=== PATIENT | female | born 1970 | race African-American/Black ===

== ENCOUNTER 2017-01-29 19:35 | Emergency (ER) | payer OTHER, MEDICAID ==
[~2017-01-29] VITALS: Ht 154.9 cm; Wt 72.7 kg
[~2017-01-29 19:35] MED LIST: ALBUTEROL SUL0.083 % IN; CIPRO XR500 MG PO; DEPAKOTE ER500 MG PO; MEDDOSEPAK PO; MONISTAT1 VA; NAPROSYN500 MG PO; PREDNISONE10 MG PO; ROBITUSSIN AC10 ML OR; ROBITUSSIN AC10 ML PO; TESSALON PER100 MG PO; ULTRAM50 M1 PO; XANAX0.25 MG PO; ZITHROMAX250 MG PO; ZPAK PO
[2017-01-29] MEDS ORDERED: MAXZIDE-2537.5 MG/TA PO (20:00)
[2017-01-29] MEDS ORDERED: ASPIRIN 81 LOW81 MG PO (20:00)
[2017-01-29 20:37] LABS: HEMATOCRIT 37.4 % (37.0-47.0); IMMATURE GRANULOCYTES 0.3 % (0.0-1.0); MEAN CELL VOLUME 80.8 fL CALC (80.0-100.0); MEAN CORPUSCULAR HGB 28.1 pG CALC (26.0-32.0); MEAN CORPUSCULAR HGB CONC 34.8 g/L CALC (32.0-36.0); NEUT# 4.11 thou/uL (2.00-7.15); RED BLOOD COUNT 4.63 mill/uL (4.20-5.60); RED CELL DISTRI WIDTH 14.2 % (11.5-15.5)
[2017-01-29 20:48] LABS: ALBUMIN 4.1 g/dL (3.2-5.0); ALKALINE PHOSPHATASE 93 u/l (38-126); ANION GAP 14 (6-22 (CALC)); BILIRUBIN, TOTAL 0.8 mg/dL (0.0-1.4); BUN 12 mg/dL (7-17); BUN/CREATININE RATIO 16 (12-20 (CALC)); CALCIUM 9.1 mg/dL (8.4-10.2); CARBON DIOXIDE 26 mmol/l (22-30); CHLORIDE 102 mmol/l (95-108); CREATININE 0.7 mg/dL (0.5-1.0); GFR > 60 ML/MIN (>=60 (CALC)); GFR FOR AFR.AMER. > 60 ML/MIN (>=60 (CALC)); GLUCOSE 98 mg/dL (65-105); POTASSIUM 4.6 mmol/l (3.5-5.1); SGOT/AST 36 u/l (14-36); SGPT/ALT 25 u/l (9-52); SODIUM 138 mmol/l (137-146); TOTAL PROTEIN 7.9 g/dL (6.3-8.2)
[2017-01-29 21:00] LABS: MYOGLOBIN 19 ng/mL (0 - 62)
[2017-01-29] MEDS ORDERED: NAPROSYN500 MG PO (22:30)
[2017-01-29 22:39] VITALS: BP 129/67
== END 2017-01-29 22:39 | disposition home or self-care (01) | DRG 313 ==
LOC: ED 19:35
PROVIDERS: Emergency Medicine
DX: R07.89 Other chest pain (principal); J44.9 Chronic obstructive pulmonary disease, unspecified; F41.9 Anxiety disorder, unspecified; J45.909 Unspecified asthma, uncomplicated; Z95.2 Presence of prosthetic heart valve; Z91.14 Patient's other noncompliance with medication regimen

== ENCOUNTER 2017-05-08 19:47 | Emergency (ER) | payer OTHER, MEDICAID ==
[~2017-05-08] VITALS: Ht 154.9 cm; Wt 79.0 kg
[~2017-05-08 19:47] MED LIST changes: +ASPIRIN 81 LOW81 MG PO; +MAXZIDE-2537.5 MG/TA PO
[2017-05-08 20:33] LABS: HEMATOCRIT 36.3 % (37.0-47.0); HEMOGLOBIN 12.2 g/dl (12.0-16.0); IMMATURE GRANULOCYTES 0.3 % (0.0-1.0); MEAN CELL VOLUME 81.9 fL CALC (80.0-100.0); MEAN CORPUSCULAR HGB 27.5 pG CALC (26.0-32.0); MEAN CORPUSCULAR HGB CONC 33.6 g/L CALC (32.0-36.0); NEUT# 4.76 thou/uL (2.00-7.15); RED BLOOD COUNT 4.43 mill/uL (4.20-5.60); RED CELL DISTRI WIDTH 13.8 % (11.5-15.5)
[2017-05-08 20:49] LABS: ALBUMIN 4.2 g/dL (3.2-5.0); ALKALINE PHOSPHATASE 85 u/l (38-126); AMYLASE 64 u/l (30-110); ANION GAP 12 (6-22 (CALC)); BILIRUBIN, TOTAL 0.7 mg/dL (0.0-1.4); BUN 11 mg/dL (7-17); BUN/CREATININE RATIO 11 (12-20 (CALC)); CALCIUM 8.9 mg/dL (8.4-10.2); CARBON DIOXIDE 28 mmol/l (22-30); CHLORIDE 102 mmol/l (95-108); GFR 60 ML/MIN (>=60 (CALC)); GFR FOR AFR.AMER. > 60 ML/MIN (>=60 (CALC)); GLUCOSE 104 mg/dL (65-105); LIPASE 88 u/l (23-300); POTASSIUM 3.7 mmol/l (3.5-5.1); SGOT/AST 24 u/l (14-36); SGPT/ALT 39 u/l (9-52); SODIUM 138 mmol/l (137-146); TOTAL PROTEIN 7.3 g/dL (6.3-8.2)
[2017-05-08 20:56] LABS: ACT PARTIAL THROMBO TIME 36.7 SECONDS (20.0-32.5); INTERNATIONAL NORMALIZED RATIO 1.1 RATIO (0.7-1.3); PROTHROMBIN TIME 12.4 SECONDS (9.0-12.5)
[2017-05-08 21:01] LABS: MYOGLOBIN 25 ng/mL (0 - 62)
[2017-05-08 22:51] LABS: URINE BILIRUBIN - DIPSTICK NEGATIVE (NEGATIVE); URINE BLOOD DIPSTICK NEGATIVE (NEGATIVE); URINE CLARITY CLEAR; URINE COLOR YELLOW; URINE GLUCOSE - DIPSTICK NEGATIVE (NEGATIVE); URINE KETONE NEGATIVE (NEGATIVE); URINE LEUK ESTERASE NEGATIVE (NEGATIVE); URINE NITRITE - DIPSTICK NEGATIVE (Negative); URINE PROTEIN - DIPSTICK NEGATIVE (NEG-TRACE); URINE SPECIFIC GRAVITY <=1.005
[2017-05-09 00:11] VITALS: BP 155/77
== END 2017-05-09 00:11 | DRG 379 ==
LOC: ED 19:47
PROVIDERS: Emergency Medicine
DX: K92.2 Gastrointestinal hemorrhage, unspecified (principal); R06.02 Shortness of breath; R10.13 Epigastric pain; R10.32 Left lower quadrant pain; R11.2 Nausea with vomiting, unspecified; R19.7 Diarrhea, unspecified; Z98.890 Other specified postprocedural states

== ENCOUNTER 2017-06-06 09:25 | Emergency (ER) | payer OTHER, MEDICAID ==
[~2017-06-06] VITALS: Ht 154.9 cm; Wt 78.0 kg
[2017-06-06 10:22] LABS: HEMATOCRIT 37.4 % (37.0-47.0); HEMOGLOBIN 12.7 g/dl (12.0-16.0); IMMATURE GRANULOCYTES 0.2 % (0.0-1.0); MEAN CELL VOLUME 81.3 fL CALC (80.0-100.0); MEAN CORPUSCULAR HGB 27.6 pG CALC (26.0-32.0); NEUT# 3.53 thou/uL (2.00-7.15); RED BLOOD COUNT 4.6 mill/uL (4.20-5.60); RED CELL DISTRI WIDTH 13.6 % (11.5-15.5)
[2017-06-06 10:54] LABS: ALBUMIN 4.4 g/dL (3.2-5.0); ALKALINE PHOSPHATASE 78 u/l (38-126); ANION GAP 14 (6-22 (CALC)); BILIRUBIN, TOTAL 0.5 mg/dL (0.0-1.4); BUN 16 mg/dL (7-17); BUN/CREATININE RATIO 19 (12-20 (CALC)); CALCIUM 9.2 mg/dL (8.4-10.2); CARBON DIOXIDE 24 mmol/l (22-30); CHLORIDE 105 mmol/l (95-108); CREATININE 0.9 mg/dL (0.5-1.0); GFR > 60 ML/MIN (>=60 (CALC)); GFR FOR AFR.AMER. > 60 ML/MIN (>=60 (CALC)); GLUCOSE 118 mg/dL (65-105); POTASSIUM 4.3 mmol/l (3.5-5.1); SGOT/AST 27 u/l (14-36); SGPT/ALT 29 u/l (9-52); SODIUM 140 mmol/l (137-146); TOTAL PROTEIN 7.8 g/dL (6.3-8.2)
[2017-06-06 11:06] LABS: MYOGLOBIN 21 ng/mL (0 - 62)
[2017-06-06 12:11] VITALS: BP 132/67
[2017-06-06] MEDS ORDERED: XANAX0.25 MG PO (12:12)
== END 2017-06-06 12:22 | disposition left against medical advice (07) | DRG 313 ==
LOC: ED 09:25
PROVIDERS: Emergency Medicine
DX: R07.9 Chest pain, unspecified (principal); J44.9 Chronic obstructive pulmonary disease, unspecified; F41.9 Anxiety disorder, unspecified; Z91.19 Patient's noncompliance with other medical treatment and regimen

== ENCOUNTER 2017-09-20 06:45 | Day surgery (SDC) | payer MEDICARE, OTHER, MEDICAID ==
[~2017-09-20] VITALS: Ht 154.9 cm; Wt 75.3 kg
[2017-09-20] MEDS ORDERED: LORTAB 7.57.5 MG PO (08:46)
[2017-09-20 09:43] VITALS: BP 133/67
== END 2017-09-20 09:42 | disposition home or self-care (01) ==
LOC: ORM 06:45
PROVIDERS: ATTEND Obstetrics & Gynecology
PROC: 0U5B8ZZ Destruction of Endometrium, Via Natural or Artificial Opening Endoscopic (ICD-10-PCS; principal; 2017-09-20)
PROC: 0UDB7ZX Extraction of Endometrium, Via Natural or Artificial Opening, Diagnostic (ICD-10-PCS; 2017-09-20)
DX: N92.1 Excessive and frequent menstruation with irregular cycle (principal); J44.9 Chronic obstructive pulmonary disease, unspecified; I10 Essential (primary) hypertension; E78.00 Pure hypercholesterolemia, unspecified; K21.9 Gastro-esophageal reflux disease without esophagitis; F17.210 Nicotine dependence, cigarettes, uncomplicated; E66.9 Obesity, unspecified; I25.10 Atherosclerotic heart disease of native coronary artery without angina pectoris; Z86.73 Personal history of transient ischemic attack (TIA), and cerebral infarction without residual deficits; Z95.3 Presence of xenogenic heart valve; Z68.33 Body mass index [BMI] 33.0-33.9, adult

== ENCOUNTER 2017-10-04 08:04 | Emergency (ER) | payer MEDICARE, MEDICAID, OTHER ==
[~2017-10-04] VITALS: Ht 154.9 cm; Wt 100.0 kg
[~2017-10-04 08:04] MED LIST changes: +LORTAB 7.57.5 MG PO
[2017-10-04] MEDS ORDERED: CARAFATE1 GM PO (08:27)
[2017-10-04] MEDS ORDERED: PANTOPRAZOLE SO40 MG PO (08:27)
[2017-10-04 08:28] LABS: HEMATOCRIT 37.4 % (37.0-47.0); HEMOGLOBIN 12.8 g/dl (12.0-16.0); IMMATURE GRANULOCYTES 0.2 % (0.0-1.0); MEAN CELL VOLUME 81.7 fL CALC (80.0-100.0); MEAN CORPUSCULAR HGB 27.9 pG CALC (26.0-32.0); MEAN CORPUSCULAR HGB CONC 34.2 g/L CALC (32.0-36.0); NEUT# 3.61 thou/uL (2.00-7.15); RED BLOOD COUNT 4.58 mill/uL (4.20-5.60); RED CELL DISTRI WIDTH 13.6 % (11.5-15.5)
[2017-10-04 08:58] LABS: ALBUMIN 4.2 g/dL (3.2-5.0); ALKALINE PHOSPHATASE 91 u/l (38-126); ANION GAP 14 (6-22 (CALC)); BILIRUBIN, TOTAL 0.5 mg/dL (0.0-1.4); BUN 13 mg/dL (7-17); BUN/CREATININE RATIO 17 (12-20 (CALC)); CALCIUM 9.3 mg/dL (8.4-10.2); CARBON DIOXIDE 19 mmol/l (22-30); CHLORIDE 110 mmol/l (95-108); CREATININE 0.8 mg/dL (0.5-1.0); GFR > 60 ML/MIN (>=60 (CALC)); GFR FOR AFR.AMER. > 60 ML/MIN (>=60 (CALC)); GLUCOSE 133 mg/dL (65-105); POTASSIUM 4.5 mmol/l (3.5-5.1); SGOT/AST 27 u/l (14-36); SGPT/ALT 34 u/l (9-52); SODIUM 138 mmol/l (137-146); TOTAL PROTEIN 7.2 g/dL (6.3-8.2)
[2017-10-04 09:16] LABS: BETA-HCG, QUANT(RESULT NUMBER) < 2 mIU/mL
[2017-10-04] MEDS ORDERED: PROVENTIL HFA IN (09:59)
[2017-10-04] MEDS ORDERED: MEDDOSEPAK PO (09:59)
[2017-10-04] MEDS ORDERED: TESSALON PER100 MG PO (10:04)
[2017-10-04] MEDS ORDERED: ALBUTEROL SUL0.083 % IN (10:04)
[2017-10-04 10:05] VITALS: BP 162/83
== END 2017-10-04 10:15 | disposition home or self-care (01) ==
LOC: ED 08:04
PROVIDERS: Emergency Medicine
DX: J44.1 Chronic obstructive pulmonary disease with (acute) exacerbation (principal); R06.02 Shortness of breath; R05 Cough; I10 Essential (primary) hypertension; Z86.73 Personal history of transient ischemic attack (TIA), and cerebral infarction without residual deficits

== ENCOUNTER 2017-10-25 23:26 | Emergency (ER) | payer MEDICARE, MEDICAID, OTHER ==
[~2017-10-25] VITALS: Ht 154.9 cm; Wt 79.5 kg
[~2017-10-25 23:26] MED LIST changes: +CARAFATE1 GM PO; +PANTOPRAZOLE SO40 MG PO; +PROVENTIL HFA IN
[2017-10-26 00:19] LABS: HEMATOCRIT 36.7 % (37.0-47.0); HEMOGLOBIN 12.4 g/dl (12.0-16.0); IMMATURE GRANULOCYTES 0.4 % (0.0-1.0); MEAN CELL VOLUME 82.8 fL CALC (80.0-100.0); MEAN CORPUSCULAR HGB CONC 33.8 g/L CALC (32.0-36.0); NEUT# 7.71 thou/uL (2.00-7.15); RED BLOOD COUNT 4.43 mill/uL (4.20-5.60); RED CELL DISTRI WIDTH 13.8 % (11.5-15.5)
[2017-10-26 00:33] LABS: ALBUMIN 4.2 g/dL (3.2-5.0); ALKALINE PHOSPHATASE 96 u/l (38-126); ANION GAP 16 (6-22 (CALC)); BILIRUBIN, TOTAL 0.9 mg/dL (0.0-1.4); BUN 10 mg/dL (7-17); BUN/CREATININE RATIO 13 (12-20 (CALC)); CALCIUM 9.9 mg/dL (8.4-10.2); CARBON DIOXIDE 24 mmol/l (22-30); CHLORIDE 107 mmol/l (95-108); CREATININE 0.8 mg/dL (0.5-1.0); GFR > 60 ML/MIN (>=60 (CALC)); GFR FOR AFR.AMER. > 60 ML/MIN (>=60 (CALC)); GLUCOSE 137 mg/dL (65-105); POTASSIUM 5.1 mmol/l (3.5-5.1); SGOT/AST 69 u/l (14-36); SGPT/ALT 44 u/l (9-52); SODIUM 142 mmol/l (137-146); TOTAL PROTEIN 7.1 g/dL (6.3-8.2)
[2017-10-26 00:45] LABS: MYOGLOBIN 22 ng/mL (0 - 62)
[2017-10-26] MEDS ORDERED: ZITHROMAX250 MG PO (01:16)
[2017-10-26 01:27] VITALS: BP 157/86
== END 2017-10-26 01:28 | disposition home or self-care (01) ==
LOC: ED 23:26
PROVIDERS: Emergency Medicine
DX: J44.1 Chronic obstructive pulmonary disease with (acute) exacerbation (principal); R06.02 Shortness of breath; J45.909 Unspecified asthma, uncomplicated; H66.91 Otitis media, unspecified, right ear; J02.9 Acute pharyngitis, unspecified; R09.81 Nasal congestion; Z91.19 Patient's noncompliance with other medical treatment and regimen

== ENCOUNTER 2017-10-28 12:35 | Emergency (ER) | payer MEDICARE, MEDICAID, OTHER | END 2017-10-28 12:48 | disposition left against medical advice (07) | LOC: ED 12:35 → LWOBS 12:48 | DX: Z91.19 Patient's noncompliance with other medical treatment and regimen (principal) ==

== ENCOUNTER 2017-10-28 15:23 | Emergency (ER) | payer MEDICARE, MEDICAID, OTHER ==
[~2017-10-28] VITALS: Ht 154.9 cm; Wt 79.0 kg
[2017-10-28 16:35] LABS: HEMATOCRIT 37.4 % (37.0-47.0); HEMOGLOBIN 12.7 g/dl (12.0-16.0); IMMATURE GRANULOCYTES 0.3 % (0.0-1.0); MEAN CELL VOLUME 84.4 fL CALC (80.0-100.0); MEAN CORPUSCULAR HGB 28.7 pG CALC (26.0-32.0); NEUT# 6.16 thou/uL (2.00-7.15); RED BLOOD COUNT 4.43 mill/uL (4.20-5.60); RED CELL DISTRI WIDTH 14.1 % (11.5-15.5)
[2017-10-28 17:01] LABS: ALBUMIN 4.3 g/dL (3.2-5.0); ALKALINE PHOSPHATASE 123 u/l (38-126); ANION GAP 17 (6-22 (CALC)); BILIRUBIN, TOTAL 0.6 mg/dL (0.0-1.4); BUN 15 mg/dL (7-17); BUN/CREATININE RATIO 17 (12-20 (CALC)); CALCIUM 9.9 mg/dL (8.4-10.2); CARBON DIOXIDE 22 mmol/l (22-30); CHLORIDE 108 mmol/l (95-108); CREATININE 0.9 mg/dL (0.5-1.0); GFR > 60 ML/MIN (>=60 (CALC)); GFR FOR AFR.AMER. > 60 ML/MIN (>=60 (CALC)); GLUCOSE 127 mg/dL (65-105); POTASSIUM 4.2 mmol/l (3.5-5.1); SGOT/AST 32 u/l (14-36); SGPT/ALT 38 u/l (9-52); SODIUM 143 mmol/l (137-146); TOTAL PROTEIN 7.5 g/dL (6.3-8.2)
[2017-10-28 21:40] VITALS: BP 170/76
== END 2017-10-28 21:40 | disposition short-term general hospital (02) ==
LOC: ED 15:23
PROVIDERS: Emergency Medicine
DX: J36 Peritonsillar abscess (principal); J44.9 Chronic obstructive pulmonary disease, unspecified; I50.9 Heart failure, unspecified

== ENCOUNTER 2017-12-14 10:11 | Emergency (ER) | payer MEDICARE, MEDICAID ==
[~2017-12-14] VITALS: Ht 154.9 cm; Wt 76.8 kg
[2017-12-14 11:16] LABS: HEMATOCRIT 38.6 % (37.0-47.0); HEMOGLOBIN 12.9 g/dl (12.0-16.0); IMMATURE GRANULOCYTES 0.3 % (0.0-1.0); MEAN CELL VOLUME 83.7 fL CALC (80.0-100.0); MEAN CORPUSCULAR HGB CONC 33.4 g/L CALC (32.0-36.0); NEUT# 3.94 thou/uL (2.00-7.15); RED BLOOD COUNT 4.61 mill/uL (4.20-5.60); RED CELL DISTRI WIDTH 13.8 % (11.5-15.5)
[2017-12-14 11:32] LABS: ALBUMIN 4.4 g/dL (3.2-5.0); ALKALINE PHOSPHATASE 80 u/l (38-126); ANION GAP 15 (6-22 (CALC)); BILIRUBIN, TOTAL 0.5 mg/dL (0.0-1.4); BUN 9 mg/dL (7-17); BUN/CREATININE RATIO 11 (12-20 (CALC)); CARBON DIOXIDE 26 mmol/l (22-30); CHLORIDE 106 mmol/l (95-108); CREATININE 0.8 mg/dL (0.5-1.0); GFR > 60 ML/MIN (>=60 (CALC)); GFR FOR AFR.AMER. > 60 ML/MIN (>=60 (CALC)); POTASSIUM 4.7 mmol/l (3.5-5.1); SGOT/AST 23 u/l (14-36); SGPT/ALT 24 u/l (9-52); SODIUM 142 mmol/l (137-146); TOTAL PROTEIN 7.3 g/dL (6.3-8.2)
[2017-12-14 11:37] LABS: INFLUENZA A NONE DETECTED (NONE DETECT); INFLUENZA B NONE DETECTED (NONE DETECT)
[2017-12-14] MEDS ORDERED: MEDDOSEPAK PO (12:03)
[2017-12-14] MEDS ORDERED: ZITHROMAX250 MG PO (12:03)
[2017-12-14 12:10] VITALS: BP 133/81
== END 2017-12-14 12:10 | disposition home or self-care (01) ==
LOC: ED 10:11
PROVIDERS: Emergency Medicine
DX: J44.9 Chronic obstructive pulmonary disease, unspecified (principal); I50.9 Heart failure, unspecified

== ENCOUNTER 2018-10-02 09:30 | Emergency (ER) | payer MEDICARE, MEDICAID ==
[~2018-10-02] VITALS: Ht 154.9 cm; Wt 73.0 kg
[2018-10-02 09:59] LABS: HEMATOCRIT 41.5 % (37.0-47.0); HEMOGLOBIN 14.1 g/dl (12.0-16.0); IMMATURE GRANULOCYTES 0.4 % (0.0-5.0); MEAN CELL VOLUME 80.9 fL CALC (80.0-100.0); MEAN CORPUSCULAR HGB 27.5 pG CALC (26.0-32.0); NEUT# 4.05 thou/uL (2.00-7.15); RED BLOOD COUNT 5.13 mill/uL (4.20-5.60); RED CELL DISTRI WIDTH 13.7 % (11.5-15.5)
[2018-10-02 10:18] LABS: ALBUMIN 4.2 g/dL (3.2-5.0); ALKALINE PHOSPHATASE 94 u/l (38-126); ANION GAP 13 (6-22 (CALC)); BILIRUBIN, TOTAL 0.8 mg/dL (0.0-1.4); BUN 13 mg/dL (7-17); BUN/CREATININE RATIO 17 (12-20 (CALC)); CARBON DIOXIDE 26 mmol/l (22-30); CHLORIDE 105 mmol/l (95-108); CREATININE 0.8 mg/dL (0.5-1.0); GFR > 60 ML/MIN (>=60 (CALC)); GFR FOR AFR.AMER. > 60 ML/MIN (>=60 (CALC)); POTASSIUM 3.9 mmol/l (3.5-5.1); SGOT/AST 28 u/l (14-36); SODIUM 140 mmol/l (137-146); TOTAL PROTEIN 7.7 g/dL (6.3-8.2)
[2018-10-02] MEDS ORDERED: ZITHROMAX250 MG PO (11:31)
[2018-10-02] MEDS ORDERED: MEDDOSEPAK PO (11:31)
[2018-10-02 11:33] VITALS: BP 177/99
== END 2018-10-02 11:34 | disposition home or self-care (01) ==
LOC: ED 09:30
PROVIDERS: Emergency Medicine
DX: J45.901 Unspecified asthma with (acute) exacerbation (principal); I50.9 Heart failure, unspecified; J44.9 Chronic obstructive pulmonary disease, unspecified; R06.02 Shortness of breath
CPT/HCPCS: J3475

== ENCOUNTER 2018-11-03 15:52 | Emergency (ER) | payer MEDICARE, MEDICAID ==
[~2018-11-03] VITALS: Ht 154.9 cm; Wt 72.5 kg
[2018-11-03] MEDS ORDERED: COMBIVENT RESPIMAT IN (16:04)
[2018-11-03] MEDS ORDERED: IPRATROPIU0.5 MG/3 M IN (16:07)
[2018-11-03 17:38] LABS: HEMOGLOBIN 14.5 g/dl (12.0-16.0); IMMATURE GRANULOCYTES 0.2 % (0.0-5.0); MEAN CELL VOLUME 82.2 fL CALC (80.0-100.0); MEAN CORPUSCULAR HGB 27.7 pG CALC (26.0-32.0); MEAN CORPUSCULAR HGB CONC 33.7 g/L CALC (32.0-36.0); NEUT# 3.68 thou/uL (2.00-7.15); RED BLOOD COUNT 5.23 mill/uL (4.20-5.60); RED CELL DISTRI WIDTH 13.8 % (11.5-15.5)
[2018-11-03 17:53] LABS: ALBUMIN 4.6 g/dL (3.2-5.0); ALKALINE PHOSPHATASE 106 u/l (38-126); ANION GAP 16 (6-22 (CALC)); BILIRUBIN, TOTAL 0.7 mg/dL (0.0-1.4); BUN 13 mg/dL (7-17); BUN/CREATININE RATIO 15 (12-20 (CALC)); CARBON DIOXIDE 28 mmol/l (22-30); CHLORIDE 103 mmol/l (95-108); CREATININE 0.8 mg/dL (0.5-1.0); GFR > 60 ML/MIN (>=60 (CALC)); GFR FOR AFR.AMER. > 60 ML/MIN (>=60 (CALC)); SGOT/AST 23 u/l (14-36); SODIUM 142 mmol/l (137-146); TOTAL PROTEIN 7.9 g/dL (6.3-8.2)
[2018-11-03] MEDS ORDERED: LASIX 40 MG TAB40 MG PO (18:25)
[2018-11-03] MEDS ORDERED: ZITHROMAX250 MG PO (18:25)
[2018-11-03] MEDS ORDERED: MEDDOSEPAK PO (18:25)
[2018-11-03 18:41] VITALS: BP 179/86
== END 2018-11-03 18:41 | disposition home or self-care (01) ==
LOC: ED 15:52
PROVIDERS: Emergency Medicine
DX: J44.1 Chronic obstructive pulmonary disease with (acute) exacerbation (principal); I50.9 Heart failure, unspecified; Z95.2 Presence of prosthetic heart valve

== ENCOUNTER 2018-12-09 18:03 | Emergency (ER) | payer MEDICARE, MEDICAID ==
[~2018-12-09] VITALS: Ht 154.9 cm; Wt 70.5 kg
[~2018-12-09 18:03] MED LIST changes: +COMBIVENT RESPIMAT IN; +IPRATROPIU0.5 MG/3 M IN; +LASIX 40 MG TAB40 MG PO
[2018-12-09 18:40] LABS: HEMATOCRIT 45.5 % (37.0-47.0); HEMOGLOBIN 15.2 g/dl (12.0-16.0); IMMATURE GRANULOCYTES 0.3 % (0.0-5.0); MEAN CELL VOLUME 81.8 fL CALC (80.0-100.0); MEAN CORPUSCULAR HGB 27.3 pG CALC (26.0-32.0); MEAN CORPUSCULAR HGB CONC 33.4 g/L CALC (32.0-36.0); NEUT# 3.26 thou/uL (2.00-7.15); RED BLOOD COUNT 5.56 mill/uL (4.20-5.60); RED CELL DISTRI WIDTH 13.9 % (11.5-15.5)
[2018-12-09] MEDS ORDERED: NEBULIZE2 IN (19:54)
[2018-12-09] MEDS ORDERED: DOXYCYCL HYC100 MG PO (19:54)
[2018-12-09] MEDS ORDERED: PREDNISONE50 MG PO (19:54)
[2018-12-09 20:19] VITALS: BP 152/76
== END 2018-12-09 20:19 | disposition home or self-care (01) ==
LOC: ED 18:03
PROVIDERS: Family Medicine
DX: J44.1 Chronic obstructive pulmonary disease with (acute) exacerbation (principal); I50.9 Heart failure, unspecified; Z95.2 Presence of prosthetic heart valve

== ENCOUNTER 2019-01-02 10:03 | Emergency (ER) | payer OTHER, MEDICARE, MEDICAID ==
[~2019-01-02] VITALS: Ht 154.9 cm; Wt 78.0 kg
[~2019-01-02 10:03] MED LIST changes: +DOXYCYCL HYC100 MG PO; +NEBULIZE2 IN; +PREDNISONE50 MG PO
[2019-01-02 11:03] VITALS: BP 123/76
== END 2019-01-02 11:03 | disposition home or self-care (01) | DRG 103 ==
LOC: ED 10:03
DX: R51 Headache (principal); M79.671 Pain in right foot; J44.9 Chronic obstructive pulmonary disease, unspecified; I50.9 Heart failure, unspecified; Z95.2 Presence of prosthetic heart valve; V49.40XA Driver injured in collision with unspecified motor vehicles in traffic accident, initial encounter

== ENCOUNTER 2019-05-29 10:16 | Observation (INO) | payer MEDICARE, MEDICAID ==
[~2019-05-29] VITALS: Ht 154.9 cm; Wt 72.7 kg
--- NOTE | 2019-05-29 10:18 | NUR ---
PATIENT TO ROOM FOR EXAM, BEDSIDE TRIAGE COMPLETED.
[2019-05-29 11:14] LABS: HEMATOCRIT 40.6 % (37.0-47.0); HEMOGLOBIN 13.4 g/dl (12.0-16.0); IMMATURE GRANULOCYTES 0.4 % (0.0-5.0); MEAN CELL VOLUME 81.5 fL CALC (80.0-100.0); MEAN CORPUSCULAR HGB 26.9 pG CALC (26.0-32.0); NEUT# 5.19 thou/uL (2.00-7.15); RED BLOOD COUNT 4.98 mill/uL (4.20-5.60); RED CELL DISTRI WIDTH 13.8 % (11.5-15.5)
[2019-05-29 11:41] LABS: ANION GAP 12 (6-22 (CALC)); BUN 10 mg/dL (7-17); BUN/CREATININE RATIO 14 (12-20 (CALC)); CARBON DIOXIDE 25 mmol/l (22-30); CHLORIDE 107 mmol/l (95-108); CREATININE 0.7 mg/dL (0.5-1.0); GFR > 60 ML/MIN (>=60 (CALC)); GFR FOR AFR.AMER. > 60 ML/MIN (>=60 (CALC)); POTASSIUM 4.4 mmol/l (3.5-5.1); SODIUM 140 mmol/l (137-146)
--- NOTE | 2019-05-29 13:45 | NUR ---
PT TRANSPORTED TO [facility] VIA WC ACCOMPIANED BY WILLIE. VS DONE PT A/O X3. SPEECH IS CLEAR. PERRLA. RESP EVEN AND UNLABORED. LUNG SOUNDS DIMINISHED. TELE IN PLACE. BOWEL SOUNDS ACTIVE X4. STRONG RADIAL AND PEDAL PULSES. #20 LAC SL. FLUSHED AND PATENT. SITE APPEARS HEALTHY. SKIN INTACT. PT DENIES ANY PAIN OR NEEDS. POC DISCUSSED. SAFETY PRECAUTIONS IN PLACE. CALL LIGHT IN REACH. WILL CONTINUE TO MONITOR.
--- NOTE | 2019-05-29 13:46 | NUR ---
REPORT CALLED TO TIMOTHY. TO FLOOR SOON.
--- NOTE | 2019-05-29 13:55 | NUR ---
PT TAKEN TO FLOOR WITHOUT INCIDENT, ROOM 260.
[2019-05-29 14:17] VITALS: BP 171/89
[2019-05-29 14:30] VITALS: BP 150/79
[2019-05-29 15:54] VITALS: BP 161/77
--- NOTE | 2019-05-29 16:16 | NUR ---
PT C/O SOB, PT APPEARS TO HAVE SLIGHT ANXIETY. VERBAL CUES W/ PT TO DECREASE ANXIETY. NOTIFIED MD OF SOB; NEW ORDERS AT THIS TIME. HOB ELEVATED. WILL CONTINUE TO MONITOR.
[2019-05-29] MEDS ORDERED: NAPROXEN EC500 MG PO (16:39)
[2019-05-29] MEDS ORDERED: RISPERIDONE OD0.5 MG PO (16:40)
[2019-05-29] MEDS ORDERED: BUSPAR10 MG PO (16:40)
[2019-05-29] MEDS ORDERED: BUPROPION150 M3 PO (16:41)
[2019-05-29] MEDS ORDERED: AMPHETAMINE PO (16:42)
[2019-05-29] MEDS ORDERED: DEX PO (16:42)
[2019-05-29] MEDS ORDERED: WIXELA INHUB 501 AER IN (16:43)
[2019-05-29 19:00] VITALS: BP 156/87
--- NOTE | 2019-05-29 19:00 | NUR ---
RECEIVED REPORT FROM NURSE TIMOTHY, PATIENY RESTING IN BED, DENIES PAIN OR DISCOMFORTS AT THIS TIME, EVEN UNLABORED BNREATHING CALL LIGHT AT REACH.
--- NOTE | 2019-05-29 20:00 | NUR ---
PATIENT ALERT AND ORINETED ABLE TO MAKE NEEDS KNOWN, WITH SALINE LOCK ON LAC G22 PATENT FLUSHES WELL, REMAINS ON TELE SR 89, LAST BM WAS 8/5 EVEN UNLABORED BREATHING CALL LIGHT AT REACH.
[2019-05-30 00:11] VITALS: BP 151/79
--- NOTE | 2019-05-30 00:56 | NUR ---
PATIENT AWAKE, DENIES PAIN OR DISCOMFORT AT THIS TIME, WATCHING MOVIE CALL LIGHT AT REACH.
[2019-05-30 03:45] VITALS: BP 150/76
--- NOTE | 2019-05-30 03:52 | NUR ---
PATIENT RESTING IN BED, DENIES PAIN OR DISCOMFORTS AT THIS TIME, EVEN UNLABORED BREATHING CALL LIGHT AT REACH.
[2019-05-30 06:32] LABS: CHOLESTEROL HDL RATIO 2.1 (<4.4 (CALC)); MAGNESIUM 1.8 mg/dL (1.6-2.3)
--- NOTE | 2019-05-30 07:05 | NUR ---
PT REPORT RECIEVED FROM RAEANN BLANCO. PT RESTING. NO S/S OF DISTRESS. CALL LIGHT IN REACH. WILL CONTINUE TO MONITOR.
[2019-05-30 07:31] VITALS: BP 180/110
--- NOTE | 2019-05-30 07:39 | NUR ---
PT A/O X3. SPEECH IS CLEAR. RESP EVEN AND UNLABORED. LUNG SOUNDS DIMINISHED. PT C/O SOB AND CHEST TIGHTNESS. O2 @2L AT BEDSIDE. RESPIRATORY CALLED FOR BREATHING TX. HOB ELEVATED. BOWEL SOUNDS ACTIVE X4. STRONG RADIAL AND PEDAL PULSES. #20 LAC SL. FLUSHED AND PATENT. SITE APPEARS HEALTHY. SKIN INTACT. PT DENIES ANY FURTHER NEEDS. POC DISCUSSED. SAFETY PRECAUTIONS IN PLACE. CALL LIGHT IN REACH. WILL CONTINUE TO MONITOR.
--- NOTE | 2019-05-30 08:20 | NUR ---
DR. HA IN TO SEE PT
[2019-05-30 08:47] VITALS: BP 177/78
[2019-05-30 11:00] VITALS: BP 149/76
--- NOTE | 2019-05-30 11:34 | NUR ---
PT WATCHING TELEVISION. NO C/O PAIN OR NEEDS. CALL LIGHT IN REACH. WILL CONTINUE TO MONITOR.
[2019-05-30 16:14] VITALS: BP 147/74
--- NOTE | 2019-05-30 16:21 | NUR ---
PT RESTING. NO C/O PAIN OR NEEDS. CALL LIGHT IN REACH. WILL CONTINUE TO MONITOR.
--- NOTE | 2019-05-30 18:07 | NUR ---
PT VERY ANXIOUS TO GO HOME; PT REMOVED TELE AND IV. LOUIE APPLIED TO IV SITE BY STAFF AIR DEFENSE OFFICER. DISCUSSED W/ PT. I WILL LET MD KNOW. PT AWATING D/C INSTRUCTIONS AT THIS TIME. WILL CONTINUE TO MONITOR.
[2019-05-30] MEDS ORDERED: ZPAK PO (18:28)
[2019-05-30] MEDS ORDERED: LASIX 40 MG TAB40 MG PO (18:28)
[2019-05-30] MEDS ORDERED: PREDNISONE10 MG PO (18:28)
[2019-05-30] MEDS ORDERED: XANAX0.25 MG PO (18:28)
[2019-05-30] MEDS ORDERED: IPRATROPIU0.5 MG/3 M IN (18:30)
[2019-05-30] MEDS ORDERED: NEBULIZE2 IN (18:30)
--- NOTE | 2019-05-30 18:35 | NUR ---
D/C INSTRUCTIONS DISCUSSED W/ PT. PT STATES UNDERSTANDING. IV REMOVED; CATHETER INTACT. TELE REMOVED. PT DRESSED READY TO AMBULATE DOWNSTAIRS TO AWAIT FOR HER MOTHER.
--- NOTE | 2019-05-30 18:45 | NUR ---
Discharge instructions given. Patient verbalizes understanding of same. Discharged in stable condition via Ambulatory to Home with family. All belongings sent with pt.
== END 2019-05-30 18:45 | disposition home or self-care (01) ==
LOC: ED 10:16 → ED-I 12:10 → ED 12:21 → MS2 12:22
PROVIDERS: Family Medicine; ADMIT Internal Medicine; ATTEND Internal Medicine
DX: J44.1 Chronic obstructive pulmonary disease with (acute) exacerbation (principal); I11.0 Hypertensive heart disease with heart failure; I50.33 Acute on chronic diastolic (congestive) heart failure; R07.9 Chest pain, unspecified; F41.9 Anxiety disorder, unspecified; F32.9 Major depressive disorder, single episode, unspecified; E78.5 Hyperlipidemia, unspecified; F17.210 Nicotine dependence, cigarettes, uncomplicated; E66.3 Overweight; G89.29 Other chronic pain; M54.9 Dorsalgia, unspecified; M25.569 Pain in unspecified knee; Z68.30 Body mass index [BMI] 30.0-30.9, adult; Z86.73 Personal history of transient ischemic attack (TIA), and cerebral infarction without residual deficits; Z95.3 Presence of xenogenic heart valve

== ENCOUNTER 2019-06-27 15:47 | Emergency (ER) | payer MEDICARE, MEDICAID ==
[~2019-06-27] VITALS: Ht 154.9 cm; Wt 70.0 kg
[~2019-06-27 15:47] MED LIST changes: +AMPHETAMINE PO; +BUPROPION150 M3 PO; +BUSPAR10 MG PO; +DEX PO; +NAPROXEN EC500 MG PO; +RISPERIDONE OD0.5 MG PO; +WIXELA INHUB 501 AER IN
[2019-06-27 17:10] VITALS: BP 135/102
== END 2019-06-27 17:10 | disposition home or self-care (01) ==
LOC: ED 15:47
DX: F41.9 Anxiety disorder, unspecified (principal); J44.9 Chronic obstructive pulmonary disease, unspecified; I50.9 Heart failure, unspecified; F17.200 Nicotine dependence, unspecified, uncomplicated; Z95.2 Presence of prosthetic heart valve

== ENCOUNTER 2019-07-20 09:58 | Emergency (ER) | payer MEDICARE, MEDICAID ==
[~2019-07-20] VITALS: Ht 154.9 cm; Wt 72.0 kg
[2019-07-20] MEDS ORDERED: DEX PO (11:42)
[2019-07-20] MEDS ORDERED: AMPHETAMINE PO (11:42)
[2019-07-20] MEDS ORDERED: ALPRAZOLAM0.5 M2 PO (11:42)
[2019-07-20] MEDS ORDERED: SYMBICORT1 AE1 IN (11:43)
[2019-07-20] MEDS ORDERED: DICLOFENAC SODI75 M1 PO (11:43)
[2019-07-20] MEDS ORDERED: ZITHROMAX500 MG PO (11:54)
[2019-07-20 12:02] VITALS: BP 148/93
== END 2019-07-20 11:52 | disposition home or self-care (01) ==
LOC: ED 09:58
DX: J32.9 Chronic sinusitis, unspecified (principal); J44.9 Chronic obstructive pulmonary disease, unspecified; I50.9 Heart failure, unspecified

== ENCOUNTER 2019-07-31 04:06 | Emergency (ER) | payer MEDICARE, MEDICAID ==
[~2019-07-31] VITALS: Ht 154.9 cm; Wt 72.0 kg
[~2019-07-31 04:06] MED LIST changes: +ALPRAZOLAM0.5 M2 PO; +DICLOFENAC SODI75 M1 PO; +SYMBICORT1 AE1 IN; +ZITHROMAX500 MG PO
[2019-07-31 05:35] LABS: HEMATOCRIT 39.2 % (37.0-47.0); HEMOGLOBIN 12.7 g/dl (12.0-16.0); IMMATURE GRANULOCYTES 0.2 % (0.0-5.0); MEAN CELL VOLUME 81.8 fL CALC (80.0-100.0); MEAN CORPUSCULAR HGB 26.5 pG CALC (26.0-32.0); MEAN CORPUSCULAR HGB CONC 32.4 g/L CALC (32.0-36.0); NEUT# 3.57 thou/uL (2.00-7.15); RED BLOOD COUNT 4.79 mill/uL (4.20-5.60); RED CELL DISTRI WIDTH 13.7 % (11.5-15.5)
[2019-07-31 05:58] LABS: ALBUMIN 4.4 g/dL (3.2-5.0); ALKALINE PHOSPHATASE 108 u/l (38-126); ANION GAP 13 (6-22 (CALC)); BILIRUBIN, TOTAL 0.5 mg/dL (0.0-1.4); BUN 15 mg/dL (7-17); BUN/CREATININE RATIO 19 (12-20 (CALC)); CARBON DIOXIDE 24 mmol/l (22-30); CHLORIDE 106 mmol/l (95-108); CREATININE 0.8 mg/dL (0.5-1.0); GFR > 60 ML/MIN (>=60 (CALC)); GFR FOR AFR.AMER. > 60 ML/MIN (>=60 (CALC)); POTASSIUM 4.2 mmol/l (3.5-5.1); SGOT/AST 33 u/l (14-36); SODIUM 139 mmol/l (137-146); TOTAL PROTEIN 8.1 g/dL (6.3-8.2)
[2019-07-31 06:08] LABS: MYOGLOBIN 31 ng/mL (0 - 62)
[2019-07-31 07:00] VITALS: BP 156/79
== END 2019-07-31 07:10 | disposition home or self-care (01) ==
LOC: ED 04:06
PROVIDERS: Emergency Medicine
DX: J44.9 Chronic obstructive pulmonary disease, unspecified (principal); I50.9 Heart failure, unspecified; Z95.2 Presence of prosthetic heart valve

== ENCOUNTER 2020-07-09 12:42 | Emergency (ER) | payer MEDICARE, MEDICAID ==
[~2020-07-09] VITALS: Ht 154.9 cm; Wt 86.3 kg
[2020-07-09 13:58] LABS: HEMATOCRIT 42.4 % (37.0-47.0); HEMOGLOBIN 13.5 g/dl (12.0-16.0); IMMATURE GRANULOCYTES 0.3 % (0.0-5.0); MEAN CELL VOLUME 80.8 fL CALC (80.0-100.0); MEAN CORPUSCULAR HGB 25.7 pG CALC (26.0-32.0); MEAN CORPUSCULAR HGB CONC 31.8 g/dL CAL (32.0-36.0); NEUT# 3.84 thou/uL (2.00-7.15); RED BLOOD COUNT 5.25 mill/uL (4.20-5.60); RED CELL DISTRI WIDTH 13.9 % (11.5-15.5)
[2020-07-09 14:07] LABS: GFR 53 ML/MIN (>=60 (CALC)); GFR FOR AFR.AMER. > 60 ML/MIN (>=60 (CALC))
[2020-07-09 14:19] LABS: ANION GAP 14 (6-22 (CALC)); BUN 21 mg/dL (7-17); BUN/CREATININE RATIO 22 (12-20 (CALC)); CARBON DIOXIDE 31 mmol/l (22-30); CHLORIDE 96 mmol/l (95-108); CREATININE 0.9 mg/dL (0.5-1.0); GFR > 60 ML/MIN (>=60 (CALC)); GFR FOR AFR.AMER. > 60 ML/MIN (>=60 (CALC)); POTASSIUM 4.2 mmol/l (3.5-5.1); SODIUM 137 mmol/l (137-146)
[2020-07-09] MEDS ORDERED: ZPAK PO (15:32)
[2020-07-09] MEDS ORDERED: PREDNISONE50 MG PO (15:32)
[2020-07-09] MEDS ORDERED: COMBIVENT RESPIMAT IN (15:32)
[2020-07-09] MEDS ORDERED: MOTRIN400 MG PO (15:32)
[2020-07-09 16:02] VITALS: BP 134/78
== END 2020-07-09 15:50 | disposition home or self-care (01) ==
LOC: ED 12:42
PROVIDERS: Family Medicine
DX: J02.9 Acute pharyngitis, unspecified (principal); J44.9 Chronic obstructive pulmonary disease, unspecified; I50.9 Heart failure, unspecified; Z95.2 Presence of prosthetic heart valve
CPT/HCPCS: Q9967

== ENCOUNTER 2020-10-11 15:10 | Emergency (ER) | payer MEDICARE, MEDICAID ==
[~2020-10-11] VITALS: Ht 154.9 cm; Wt 81.8 kg
[~2020-10-11 15:10] MED LIST changes: -BUPROPION150 M3 PO; +MOTRIN400 MG PO
[2020-10-11] MEDS ORDERED: NAPROXEN375 MG PO (15:49)
[2020-10-11] MEDS ORDERED: MEDDOSEPAK PO (15:49)
[2020-10-11] MEDS ORDERED: FLEXERIL5 M1 PO (15:49)
[2020-10-11] MEDS ORDERED: PREMARIN0.625 MG PO (15:56)
[2020-10-11] MEDS ORDERED: TRILEPTAL300 MG PO (16:16)
[2020-10-11] MEDS ORDERED: HYDROXYZ HCL10 MG PO (16:16)
[2020-10-11] MEDS ORDERED: BUPROPION150 M3 PO (16:19)
[2020-10-11 16:22] VITALS: BP 165/89
== END 2020-10-11 16:22 | disposition home or self-care (01) ==
LOC: ED 15:10
DX: S16.1XXA Strain of muscle, fascia and tendon at neck level, initial encounter (principal); J44.9 Chronic obstructive pulmonary disease, unspecified; I50.9 Heart failure, unspecified; X58.XXXA Exposure to other specified factors, initial encounter; Z95.2 Presence of prosthetic heart valve

== ENCOUNTER 2021-03-09 15:46 | Observation (INO) | payer MEDICARE, MEDICAID ==
[~2021-03-09] VITALS: Ht 152.4 cm; Wt 72.0 kg
[~2021-03-09 15:46] MED LIST changes: +BUPROPION150 M3 PO; +FLEXERIL5 M1 PO; +HYDROXYZ HCL10 MG PO; +NAPROXEN375 MG PO; +PREMARIN0.625 MG PO; +TRILEPTAL300 MG PO
[2021-03-09 16:54] LABS: HEMATOCRIT 44.4 % (37.0-47.0); HEMOGLOBIN 14.8 g/dl (12.0-16.0); IMMATURE GRANULOCYTES 0.4 % (0.0-5.0); MEAN CELL VOLUME 77.2 fL CALC (80.0-100.0); MEAN CORPUSCULAR HGB 25.7 pG CALC (26.0-32.0); MEAN CORPUSCULAR HGB CONC 33.3 g/dL CAL (32.0-36.0); NEUT# 3.73 thou/uL (2.00-7.15); RED BLOOD COUNT 5.75 mill/uL (4.20-5.60); RED CELL DISTRI WIDTH 12.5 % (11.5-15.5)
[2021-03-09 17:02] LABS: URINE BILIRUBIN - DIPSTICK NEGATIVE (NEGATIVE); URINE BLOOD DIPSTICK NEGATIVE (NEGATIVE); URINE COLOR YELLOW; URINE GLUCOSE - DIPSTICK >=1000 mg/dL (NEGATIVE); URINE KETONE >=80 mg/dL (NEGATIVE); URINE LEUK ESTERASE NEGATIVE (NEGATIVE); URINE PROTEIN - DIPSTICK NEGATIVE (NEG-TRACE); URINE SPECIFIC GRAVITY 1.025; URINE UROBILINOGEN - DIPSTICK 0.2 E.U./dL (0.2)
[2021-03-09 17:04] LABS: URINE NITRITE - DIPSTICK NEGATIVE (Negative)
[2021-03-09 17:17] LABS: ALBUMIN 4.2 g/dL (3.2-5.0); ALKALINE PHOSPHATASE 160 u/l (38-126); BUN 15 mg/dL (7-17); BUN/CREATININE RATIO 19 (12-20 (CALC)); CHLORIDE 91 mmol/l (95-108); CREATININE 0.8 mg/dL (0.5-1.0); GFR > 60 ML/MIN (>=60 (CALC)); GFR FOR AFR.AMER. > 60 ML/MIN (>=60 (CALC)); LIPASE 346 u/l (23-300); POTASSIUM 4.4 mmol/l (3.5-5.1); SGOT/AST 22 u/l (14-36); TOTAL PROTEIN 7.8 g/dL (6.3-8.2)
[2021-03-09 17:30] LABS: ANION GAP 21 (6-22 (CALC)); CARBON DIOXIDE 17 mmol/l (22-30); SODIUM 125 mmol/l (137-146)
--- NOTE | 2021-03-09 18:10 | NUR ---
PATIENT ASSISTED TO BSC AND TO USE PORTABLE TELEPHONE. DENIES ANY FURTHER NEEDS AT THIS TIME
--- NOTE | 2021-03-09 18:16 | NUR ---
PATIENT STATES SHE QUIT TAKING ALL OF HER MEDICATIONS "ABOUT 4 MONTHS AGO".
--- NOTE | 2021-03-09 18:26 | NUR ---
ATTEMPT TO CALL REPORT TO FLOOR
--- NOTE | 2021-03-09 18:35 | NUR ---
REPORT RECEIVED FROM ED NURSE. IT WAS OBSERVED THAT PT'S BP ELEVATED IN 180'S, i ASKED IF THEY WERE GOING TO ADDRESS THIS BP, DAY ED NURSE STATED THAT THE PHYSICIAN WAS AWARE AND DID NOT ORDER ANYTHING FOR ELEVATED BP. SHE ALSO REPORTED THAT PT'S BLOOD GLUCOSE WAS 532 ON LAST CHECK AND THAT 5 UNITS OF INSULIN HAD BEEN ADMINISTERED, I ASKED IF THER HAD BEEN A RECHECK, SHE REPLIED NO. I ASKED IF SHE COULD PLEASE RECHECK THE PT'S SUGAR AND MAKE SURE SHE IS STABLE PRIOR TO BRINGING HER TO THE MED SURG UNIT, SHE AGREED VERBALLY.
--- NOTE | 2021-03-09 18:36 | NUR ---
REGISTRATION CURRENTLY BEDSIDE WITH PATIENT
[2021-03-09 18:55] VITALS: BP 169/79
--- NOTE | 2021-03-09 18:55 | NUR ---
PT ARRIVED TO MED SURG UNIT VIA STRETCHER ACCOMPANIED BY ED NURSE. PT APPEARS TO BE IN STABLE CONDITION AT THIS TIME. SAND MILL OPERATOR CORE SAND IN WITH PT AT THIS TIME.
--- NOTE | 2021-03-09 19:07 | NUR ---
REPORT TO PAYAL CARY
--- NOTE | 2021-03-09 19:10 | NUR ---
PT ASSESSEMENT COMPLETED AT THIS TIME. PT'S DINNER TRAY HAS BEEN EATEN 100% AND SHE REPORTS THAT FAMILY IS BRINGING HER ADDITIONAL DINNER. I ADVISED HER OF VISITATION HOURS.
--- NOTE | 2021-03-09 20:15 | NUR ---
E D TECH CAME TO THE FLOOR BRINGING A PERSONAL BELONGINGS BAG AND LARGE CUP OF SOUP FOR PT. THE PT SELF AMBULATED DOWN THE [place] TO NURSES STATION TO GET THESE ITEMS BEFORE MYSELF OR AIDE WAS ABLE TO GET THEM TO HER. PT DOES NOT APPEAR DISTRESSED IN ANY WAY. DENIES PAIN/N/V OR WEAKNESS IN LEGS AT THIS TIME. PT ASSISTED BACK TO HER ROOM FOR SAFETY PRECAUTIONS WITH STANDBY ASSISTANCE, DENIED THIS NEED.
--- NOTE | 2021-03-09 20:24 | NUR ---
PT MEDICATED AT THIS TIME ORDERS PROVIDE. PT IS EATING SOUP. I DISCUSSED BLOOD GLUCOSE LEVELS WITH HER, APPEARS DISINTERESTED, NO RESPONSE AT THIS TIME.
[2021-03-09 23:30] VITALS: BP 132/69
--- NOTE | 2021-03-10 01:40 | NUR ---
PT EYES ARE CLOSED, APPEARS TO BE SLEEPING, NO S/O DISTRESS AT THIS TIME. CALL LIGHT IS AT SIDE.
--- NOTE | 2021-03-10 03:28 | NUR ---
ed called to report pt is off telemetry. Upon entering room, pt was ambulated to restroom. assisted her back to bed, no s/o distress noted. She reported that she has been sleeping really well. hydrogen plant operator leads placed back in place. BSC emptied of 300cc of clear yellow urine. Pt reports having urinated in the toilet and flushing also.
[2021-03-10 04:00] VITALS: BP 135/75
[2021-03-10 04:37] LABS: HEMATOCRIT 40.7 % (37.0-47.0); HEMOGLOBIN 13.9 g/dl (12.0-16.0); IMMATURE GRANULOCYTES 0.2 % (0.0-5.0); MEAN CELL VOLUME 76.8 fL CALC (80.0-100.0); MEAN CORPUSCULAR HGB 26.2 pG CALC (26.0-32.0); MEAN CORPUSCULAR HGB CONC 34.2 g/dL CAL (32.0-36.0); NEUT# 3.26 thou/uL (2.00-7.15); RED BLOOD COUNT 5.3 mill/uL (4.20-5.60); RED CELL DISTRI WIDTH 12.4 % (11.5-15.5)
[2021-03-10 04:57] LABS: ALKALINE PHOSPHATASE 142 u/l (38-126); ANION GAP 15 (6-22 (CALC)); BILIRUBIN, TOTAL 0.7 mg/dL (0.0-1.4); BUN 17 mg/dL (7-17); BUN/CREATININE RATIO 23 (12-20 (CALC)); CARBON DIOXIDE 17 mmol/l (22-30); CHLORIDE 98 mmol/l (95-108); CREATININE 0.7 mg/dL (0.5-1.0); GFR > 60 ML/MIN (>=60 (CALC)); GFR FOR AFR.AMER. > 60 ML/MIN (>=60 (CALC)); POTASSIUM 4.2 mmol/l (3.5-5.1); SGOT/AST 17 u/l (14-36); SODIUM 127 mmol/l (137-146); TOTAL PROTEIN 6.3 g/dL (6.3-8.2)
[2021-03-10 04:58] LABS: ALBUMIN 3.3 g/dL (3.2-5.0)
--- NOTE | 2021-03-10 05:45 | NUR ---
PT C/O "STOMACH ACHE AND IV NEEDS FLUSHED" PT MEDICATED WITH TYLENOL, REFUSED MOM, REPORTING LAST STOOL OUTPUT TWO DAYS AGO, DENIES CONSTIPATION. STATES I WANT THE DOCTOR TO COME SEE ME AND ORDER ME A SCAN TO SEE IF I HAVE A BLOCK OR SOMETHING. PT ALSO REPORTS THAT SHE SLEPT WELL. PT APPEARS CALM, SLEEPY, DENIES ANY OTHER NEEDS. ABD APPEARS SOFT W/OUT TENDERNESS TO PALPATION. DISCUSSED PHYSICIAN SCHEDULE WITH HER. I WAS LEAVING THE ROOM SHE ASKED "WHEN DO THEY START SERVING COFFEE?" NO S/O DISTRESS. CALL LIGHT AT SIDE.
[2021-03-10 07:40] VITALS: BP 150/83
--- NOTE | 2021-03-10 07:45 | NUR ---
REPORT RECEIVED FROM RAEANN REYES. PT RESTING IN BED SEMI FOWLERS; ALERT AND ORIENTED X 3. C/O 5/10 LEFT SIDED CHEST PAIN AND 9/10 EPIGASTRIC PAIN THAT SHE STATES SHE BELIEVES IS CAUSED FROM RECEIVING ASPIRIN YESTERDAY. RESPIRATIONS EVEN AND UNLABORED ON ROOM AIR. LUNGS ARE CLEAR; EMS IV SITE APPEARS HEALTHY AND FLUSHES. ACCU CHECK 363; HUMALOG 8 UNITS ADMINISTERED. POC REVIEWED; PT ENCOURAGED TO VERBALIZE CONCERNS; STATES UNDERSTANDING. SAFETY MEASURES IN PLACE. CALL LIGHT WITHIN REACH.
[2021-03-10] MEDS ORDERED: NORVASC PO ×2 (08:05→11:26)
[2021-03-10] MEDS ORDERED: LIPITOR20 M1 PO (08:05)
[2021-03-10] MEDS ORDERED: LOPRESSOR50 M1 PO (08:05)
[2021-03-10] MEDS ORDERED: OLANZAPINE2.5 MG PO (08:07)
[2021-03-10] MEDS ORDERED: COZAAR50 MG PO (08:08)
[2021-03-10] MEDS ORDERED: LASIX 40 MG TAB40 MG PO (08:08)
--- NOTE | 2021-03-10 08:34 | NUR ---
XANAX GIVEN PER PT REQUEST.
--- NOTE | 2021-03-10 09:59 | NUR ---
DR. HA AND BRYNN LOYA AT BEDSIDE.
[2021-03-10 10:08] VITALS: BP 141/84
--- NOTE | 2021-03-10 11:12 | NUR ---
SHOWERED INDEPENDENTLY. IV FLUIDS INITIATED AT 80ML/HR. PT RESTING SEMI FOWLERS; TALKING ON CELL PHONE TO FAMILY.
[2021-03-10] MEDS ORDERED: ADDERALL10 MG PO (11:28)
[2021-03-10] MEDS ORDERED: PRAVASTATIN80 MG PO (11:30)
--- NOTE | 2021-03-10 13:08 | NUR ---
RESTING ON LEFT SIDE WITH EYES CLOSED; PT REPORTS CONTINUED EPIGASTRIC PAIN 8/10 AFTER PROTONIX GIVEN. TYLENOL ADMINISTERED AT THIS TIME. WILL CONTINUE TO MONITOR.
[2021-03-10 15:02] VITALS: BP 103/65
--- NOTE | 2021-03-10 17:48 | NUR ---
PT FOUND IN BATHROOM WITH LOOSE STOOL ON THE FLOOR; STATES THAT SHE DRANK COFFEE AND HAD AN ACCIDENT. ASSISTED WITH HYGIENE AND MESH PANTIES PROVIDED. PT REPORTS THAT HER EPIGASTRIC PAIN HAS DECREASED, BUT REQUESTS MEDICATION TO HELP WITH MODERATE PAIN; NEW ORDER RECEIVED FOR PO PEPCID; GIVEN AT THIS TIME ALONG WITH XANAX. ACCU CHECK [id number]; NOTIFIED; NEW ORDERS RECEIVED; COVERED WITH 15 UNITS OF HUMALOG AND 15 UNITS OF LEVEMIR. PT NOW SITTING UP ON EDGE OF BED FOR DINNER.
[2021-03-10 19:00] VITALS: BP 111/67
--- NOTE | 2021-03-10 19:49 | NUR ---
PT CALLED TO C/O IV SITE HURTING WHEN SHE BENDS HER HAND. SITE IS AN EMS SITE, IT DISCUSSED CHANGING IT WITH HER, BLOOD RETURN AND PATENT UPON FLUSHING, DENIES FLUSHING PAINFUL, BUT SAYS SHE KEEPS CATCHING IT ON THINGS. I ADVISED CHANGING SITE DUE TO EMS STATUS AND DISCOMFORT WITH LOCATION, REFUSED STATING "JUST TAPE IT DOWN AND WRAP IT UP." WILL MONITOR SITE/APPEARS HEALTHY AT THIS TIME. ASSESSMENT COMPLETED AND PT MEDICATED ORDERS PROVIDE. PT REPORTS ABD PAIN IS GONE, REPORTS HAVING 2X STOOL OUTPUT EARLIER THIS DAY. I ASKED IF SHE WAS HAVING ANY PAIN AT ALL, SHE REPLIED "NO, JUST CONGESTION IN MY THROAT, I NEED AN ANTIBIOTIC." PT STATES THAT SHE TALKED WITH THE PHYSICIAN ABOUT IT EARLIER. DENIES SOB, CP, NO LUNG SOUNDS ARE CLEAR W/MILD WHEEZE IN UPPER LOBES. MILD R.SIDED FACIAL DROOP/BASELINE FROM PREVIOUS ASSESSMENT PRIOR SHIFT, AND REPORTED BY THE PT HER BASELINE. PT ASKED TWICE IF SHE CAN HAVE SOMETHING SWEET TO EAT, I ADVISED HER BOTH TIMES THAT HER BLOOD SUGAR WAS REALLY HIGH PRIOR TO RECEIVING HER DINNER TRAY AND WE NEED TO CHECK HER SUGAR PRIOR TO HER EATING SUGARY SWEETS.
--- NOTE | 2021-03-10 21:35 | NUR ---
PT CALLED TO SAY THAT HER IVPUMP WAS SOUNDING, UPON ENTERING THE ROOM, HER IV CANULA WITH TAPE STILL ATTACHED WAS LAYING ON THE FLOOR NEAR THE DOOR. IT APPEARED TO HAVE BEEN THROWN. PT WAS IN BED,STATED SHE REMOVED IT BECAUSE IT WAS BOTHERING HER. SITE APPEARS HEALTHY, NO SWELLING, BLEEDING, TENDERNESS OR REDNESS TO SITE. PT ASKING WHEN SHE CAN HAVE SOME ICECREAM, I MEDICATED HER WITH 10 UNITS OF INSULIN AT THIS TIME AND EXPLAINED TO HER THAT SHE CANNOT HAVE ICECREAM DUE TO HER GLUCOSE BEING SO ELEVATED AND THAT IT CAN BE DANGEROUS TO JUST KEEP LETTING IT GO UP. SHE VERBALIZED, "HOW AN I GOING TO KNOW WHEN TO TAKE THIS INSULIN AT HOME." ATTEMPTS TO EDUCATE PT AND I INFORMED HER THAT WE WOULD PROVIDE EDUCATIONAL MATERIAL FOR HER PRIOR TO DISCHARGE AND THAT THE DOSING AND MEDICATIONS WOULD BE EXPLAINED TO HER AND HOW TO MANAGE HER DIABETES, BUT THAT IT IS BEST MANAGED ALSO THROUGH DIET AND EXERCISE ALONG WITH HER MEDICATIONS. NO RESPONSE RECEIVED.
--- NOTE | 2021-03-10 21:45 | NUR ---
MELANIARN IN TO ACCESS IV SITE. UNABLE TO ACCESS AT THIS TIME AFTER TWO ATTEMPTS.
--- NOTE | 2021-03-10 22:43 | NUR ---
PT WAS SLEEPING, MEDICATED WITH 20UNITS OF LEVEMIR ORDERS PROVIDE. DENIES ANY OTHER NEEDS AT THIS TIME.
[2021-03-11] VITALS: BP 136/70
--- NOTE | 2021-03-11 02:16 | NUR ---
pt appears to be sleeping, no s/o distress noted. call light at side.
--- NOTE | 2021-03-11 04:34 | NUR ---
ATTEMPTS WERE MADE FOR IV ACCESS AND TO OBTAIN LAB DRAWS. PT FIRST REFUSED TO REMOVE HER ARM FROM THE COVERS. SHE AGREED TO THE IV, BUT STATED SHE DIDN'T WANT TO HAVE TO TAKE HER ARM OUT OF THE COVERS BECAUSE SHE IS COLD. ONCE SHE AGREED TO REMOVE HER ARM FROM THE COVERS FOR ME TO PLACE IV, SHE PULLED ARM AWAY EACH TIME I ATTEMPTED ACCESS. PT REFUSED TO KEEP ARM AVAILABLE FOR PLACEMENT. UNABLE TO OBTAIN, LAB NOTIFIED.
[2021-03-11 04:36] VITALS: BP 125/73
[2021-03-11 05:26] LABS: IMMATURE GRANULOCYTES 0.4 % (0.0-5.0); MEAN CELL VOLUME 76.8 fL CALC (80.0-100.0); MEAN CORPUSCULAR HGB 25.6 pG CALC (26.0-32.0); MEAN CORPUSCULAR HGB CONC 33.3 g/dL CAL (32.0-36.0); NEUT# 3.21 thou/uL (2.00-7.15); RED BLOOD COUNT 5.47 mill/uL (4.20-5.60); RED CELL DISTRI WIDTH 12.2 % (11.5-15.5)
[2021-03-11 05:49] LABS: ALBUMIN 3.1 g/dL (3.2-5.0); ALKALINE PHOSPHATASE 119 u/l (38-126); ANION GAP 7 (6-22 (CALC)); BILIRUBIN, TOTAL 0.8 mg/dL (0.0-1.4); BUN 11 mg/dL (7-17); BUN/CREATININE RATIO 19 (12-20 (CALC)); CARBON DIOXIDE 26 mmol/l (22-30); CHLORIDE 100 mmol/l (95-108); CREATININE 0.6 mg/dL (0.5-1.0); GFR > 60 ML/MIN (>=60 (CALC)); GFR FOR AFR.AMER. > 60 ML/MIN (>=60 (CALC)); POTASSIUM 3.3 mmol/l (3.5-5.1); SGOT/AST 16 u/l (14-36); SODIUM 130 mmol/l (137-146); TOTAL PROTEIN 6.2 g/dL (6.3-8.2)
[2021-03-11 07:45] VITALS: BP 108/54
--- NOTE | 2021-03-11 07:45 | NUR ---
ASSESSMENT IS COMPLETED: NO IV SITE AT THIS TIME MD IS AWARE. HR IS REG,PULSES ARE STRONG X4, ABD IS SOFT WITH ACTIVE BS. BREATH SOUNDS ARE CLEAR, BILATERALLY, TELE MONITOR IN PLACE. CONTINUE TO OSBERVE AND MONITOR.
[2021-03-11 08:50] VITALS: BP 106/54
[2021-03-11 10:39] VITALS: BP 113/64
[2021-03-11] MEDS ORDERED: LEVEMIR100 UNIT SC (12:00)
[2021-03-11] MEDS ORDERED: PANTOPRAZOLE SO40 M1 PO (12:00)
--- NOTE | 2021-03-11 12:15 | NUR ---
PT'S IV SITE ALREADY TAKEN OFF. TELE MONITOR OFF PT , WHILE IN THE SHOWER.
--- NOTE | 2021-03-11 14:45 | NUR ---
DISCHARGE INSTRUCITONS GIVEN AND VERBALIZED UNDERSTANDING. ALL BELONGINGS. SENT WITH PT. CONTINUE TO OSBERVE AND MONITOR. Discharge instructions given. Patient verbalizes understanding of same. Discharged in stable condition via Wheelchair to Home with family. All belongings sent with pt.
== END 2021-03-11 14:41 | disposition home or self-care (01) ==
LOC: ED 15:46 → ED-I 17:22 → ED 17:37 → MS2 17:38
PROVIDERS: Family Medicine; Nurse Practitioner; Nurse Practitioner Family; ADMIT Internal Medicine; ATTEND Internal Medicine
DX: R07.9 Chest pain, unspecified (principal); E11.65 Type 2 diabetes mellitus with hyperglycemia; E87.1 Hypo-osmolality and hyponatremia; J44.9 Chronic obstructive pulmonary disease, unspecified; I11.0 Hypertensive heart disease with heart failure; I50.32 Chronic diastolic (congestive) heart failure; I25.10 Atherosclerotic heart disease of native coronary artery without angina pectoris; K21.9 Gastro-esophageal reflux disease without esophagitis; E78.5 Hyperlipidemia, unspecified; F19.10 Other psychoactive substance abuse, uncomplicated; I69.392 Facial weakness following cerebral infarction; I69.354 Hemiplegia and hemiparesis following cerebral infarction affecting left non-dominant side; F17.200 Nicotine dependence, unspecified, uncomplicated; T38.3X6A Underdosing of insulin and oral hypoglycemic [antidiabetic] drugs, initial encounter; Z91.128 Patient's intentional underdosing of medication regimen for other reason; Z95.3 Presence of xenogenic heart valve; Z20.822 Contact with and (suspected) exposure to COVID-19
CPT/HCPCS: G0378; J1650; S0164

== ENCOUNTER 2021-04-23 08:19 | Emergency (ER) | payer MEDICARE, MEDICAID ==
[~2021-04-23] VITALS: Ht 152.4 cm; Wt 64.2 kg
[~2021-04-23 08:19] MED LIST changes: +ADDERALL10 MG PO; +COZAAR50 MG PO; +LEVEMIR100 UNIT SC; +LIPITOR20 M1 PO; +LOPRESSOR50 M1 PO; +NORVASC PO; +OLANZAPINE2.5 MG PO; +PANTOPRAZOLE SO40 M1 PO; +PRAVASTATIN80 MG PO
[2021-04-23 09:10] LABS: BASO% 0 % (0-3); EOS% 0 % (0-8); HEMATOCRIT 44.7 % (37.0-47.0); HEMOGLOBIN 14.9 g/dl (12.0-16.0); IMMATURE GRANULOCYTES 0.3 % (0.0-5.0); LYMPH% 2 % (15-41); MEAN CELL VOLUME 76.5 fL CALC (80.0-100.0); MEAN CORPUSCULAR HGB 25.5 pG CALC (26.0-32.0); MEAN CORPUSCULAR HGB CONC 33.3 g/dL CAL (32.0-36.0); MONO% 8 % (2-13); NEUT# 16.56 thou/uL (2.00-7.15); NEUT% 90 % (42-76); RED BLOOD COUNT 5.84 mill/uL (4.20-5.60); RED CELL DISTRI WIDTH 14.7 % (11.5-15.5)
[2021-04-23 09:14] LABS: PLATELET COUNT 357 thou/uL (130-400)
[2021-04-23 09:26] LABS: ALKALINE PHOSPHATASE 171 u/l (38-126); ETHYL ALCOHOL 0 mg/dl (0-30); HDL CHOLESTEROL 80 mg/dL (>=40); LIPASE 899 u/l (23-300); SGOT/AST 27 u/l (14-36); TRIGLYCERIDES REFLEX TO dLDL 324 mg/dl (30-149); VLDL CHOLESTROL 65 mg/dl (1-41 (CALC))
[2021-04-23 09:41] LABS: BUN 44 mg/dL (7-17); BUN/CREATININE RATIO 15 (12-20 (CALC)); GFR 17 ML/MIN (>=60 (CALC)); GFR FOR AFR.AMER. 20 ML/MIN (>=60 (CALC)); SODIUM 123 mmol/l (137-146)
[2021-04-23 09:42] LABS: ALBUMIN 4.8 g/dL (3.2-5.0); ANION GAP 40 (6-22 (CALC)); BILIRUBIN, TOTAL 1.6 mg/dL (0.0-1.4); CALCULATED LDLCHOLESTEROL 209 mg/dL (62-129 (CALC)); CARBON DIOXIDE < 5 mmol/l (22-30); CHLORIDE 84 mmol/l (95-108); CHOLESTEROL HDL RATIO 4.4 (<4.4 (CALC)); TOTAL CHOLESTEROL 354 mg/dl (0-199); TOTAL PROTEIN 9.5 g/dL (6.3-8.2)
[2021-04-23 10:06] LABS: TSH, 3RD GENERATION 1.24 uIU/mL (0.47 - 4.68)
--- NOTE | 2021-04-23 10:27 | NUR ---
pt adelina neb therapy c mask well. pt c exp whz. pt c c/o thirsty. wants ice chips.
[2021-04-23 11:31] LABS: URINE BILIRUBIN - DIPSTICK NEGATIVE (NEGATIVE); URINE BLOOD DIPSTICK SMALL (NEGATIVE); URINE COLOR YELLOW; URINE GLUCOSE - DIPSTICK >=1000 mg/dL (NEGATIVE); URINE KETONE 40 mg/dL (NEGATIVE); URINE LEUK ESTERASE NEGATIVE (NEGATIVE); URINE PH 5.5 (4.5-8.0); URINE PROTEIN - DIPSTICK 30 mg/dL (NEG-TRACE); URINE SPECIFIC GRAVITY 1.025; URINE UROBILINOGEN - DIPSTICK 0.2 E.U./dL (0.2)
[2021-04-23 11:32] LABS: URINE EPITHELIAL CELLS MANY EPI/hpf (0-FEW); URINE MUCUS FEW hpf (NONE-FEW); URINE NITRITE - DIPSTICK NEGATIVE (Negative); URINE WBC 0-2 WBC/hpf (0-5)
[2021-04-23 12:28] LABS: ALBUMIN 4.2 g/dL (3.2-5.0); CREATININE 2.6 mg/dL (0.5-1.0); TOTAL PROTEIN 7.8 g/dL (6.3-8.2)
[2021-04-23 12:41] LABS: POTASSIUM 4.5 mmol/l (3.5-5.1)
[2021-04-23 15:27] VITALS: BP 158/89
== END 2021-04-23 15:00 | disposition short-term general hospital (02) ==
LOC: ED 08:19 → ED-I 10:15 → ED 15:00
PROVIDERS: Family Medicine
PROC: 02HV33Z Insertion of Infusion Device into Superior Vena Cava, Percutaneous Approach (ICD-10-PCS; principal; 2021-04-23)
PROC: 06HY33Z Insertion of Infusion Device into Lower Vein, Percutaneous Approach (ICD-10-PCS; 2021-04-23)
DX: E11.10 Type 2 diabetes mellitus with ketoacidosis without coma (principal); N17.9 Acute kidney failure, unspecified; E87.5 Hyperkalemia; I11.0 Hypertensive heart disease with heart failure; I50.9 Heart failure, unspecified; J44.9 Chronic obstructive pulmonary disease, unspecified; E66.9 Obesity, unspecified; F17.200 Nicotine dependence, unspecified, uncomplicated; I44.7 Left bundle-branch block, unspecified; Z95.2 Presence of prosthetic heart valve; Z20.822 Contact with and (suspected) exposure to COVID-19
CPT/HCPCS: J1644